=== PATIENT | male | born 1975 | race Two or more races ===

== ENCOUNTER 2018-04-06 09:17 | Emergency (ER) | payer SELFPAY ==
[2018-04-06] MEDS ORDERED: IBUPROFEN 600 MG TAB PO ONE (09:34)
[2018-04-06] MEDS ORDERED: TDAP ADULT 0.5 ML INJ (BOOSTRIX) IM ONE (09:34)
[2018-04-06] MEDS ORDERED: OXYCODONE/APAP 5/325 TAB PO ONE (09:34)
--- NOTE | 2018-04-06 09:42 | EDPHY ---
General Time Seen by Provider: 04/06/18 09:35 Narrative: CHIEF COMPLAINT: Hand burn HISTORY OF PRESENT ILLNESS: Patient presents by private vehicle with spouse with complaints of burn to the right hand. He says that just prior to arrival his coffee pot "exploded," describing coffee coming out the top of the coffee pot. He attempted to stop the liquid from splint everywhere, and it hit him on the back of the right hand. He states that he is 10/10 pain on the back of the right hand. He did have a ring on that he immediately removed. He ran his hand under tap water for 1 min. His pain is worse with any kind of palpation and movement. He has no burn or pain on the palm of the hand. No burn above the hand. He denies any injury to the face, eyes, genitals or remainder of his person. He does not know when his last Tdap was administered. No other associated complaints or modifying factors. Right-hand dominant. HPI obtained using the hospital's certified [place]oc[place] language specialist ( Laura) at bedside in patient's room. TIME OF INJURY: Just prior to arrival TETANUS STATUS: Uncertain MEDICAL/SURGICAL/SOCIAL HISTORY: Uncomplicated. Nonsmoker. Lives independently with his spouse. Works in construction REVIEW OF SYSTEMS: Ten systems reviewed and are negative unless otherwise noted in the HPI EXAMINATION General Appearance: Alert, no distress Head: normocephalic, atraumatic Cardiovascular: Radial pulses symmetric. Good signs of perfusion of the right hand. Neurological: A&O, 2 point sensory symmetric, mexican food machine tender and interossei strength symmetric Skin: Warm and dry, no rash. There is an area of partial-thickness and superficial burn to the dorsum of the right hand. The partial-thickness is approximately 2 cm by 3 cm with eruption of a blister. There is involvement only the dorsum of the right hand with no involvement of the palmar surface or any circumferential vazquez. There is no involvement above the metacarpals. No signs of infection. Extremities: Moderate tenderness to the dorsum of the right hand. Range of motion of the hand symmetric with good extension and flexion of all the fingers symmetrically. All compartments are soft without any signs of compartment syndrome. DIFFERENTIAL DIAGNOSES: Including but not limited to partial-thickness burn, superficial burn, full- thickness burn MDM: 9:35 a.m. Partial-thickness burn to the dorsum of the right hand without any circumferential vazquez. This measures approximately 1% total surface area. We will irrigate the wound, I have ordered pain medication and Tdap booster. I discussed with Dr. Jacobsen. I will also consult with our wound clinic to assure outpatient follow-up. 9:50 a.m. Case discussed with on-call general surgeon Dr. Brian. He requested I performed debridement. We performed standard burn care and that he would like to see the patient in the wound care center on . 10:15 a.m. I have performed debridement and Patient re-evaluated. He has been irrigated and bacitracin applied to affected areas. There are piece of gauze between fingers to protect. He is resting comfortably. He has received his Tdap booster, pain medication ibuprofen. I reaffirmed his need to leave the dressing in place until . Laura will help the patient arrange for an appointment on . ED precautions discussed. Discharged home stable condition. PROCEDURE: Debridement Indication: Hand burn Consent: Verbal Location: Dorsum of the right hand Length: 5 cm x 3 cm Complexity: Complex Anesthesia: None Procedure description: After time-out and verbal consent, the a hand was prepped, sterile fashion. Wound was irrigated copiously. I then excised approximately 5 subcutaneously cm of nonviable tissue following partial- thickness burn. The underlying tissue was viable, and without signs of infection or bleeding. Wound care: As discussed with the wound healing Center on Follow-up: Wound Healing Center on SUPERVISION: Patient was independently examined, but I discussed the case with my secondary supervising physician Dr. Jacobsen - History History Review: I reviewed the patient's medical records, I obtained additional history from the patient's family Smoking Status: Never smoked - Objective Vital Signs: Initial Vital Signs Temperature (C) 98.1 F 04/06/18 09:21 Heart Rate 71 04/06/18 09:21 Respiratory Rate 16 04/06/18 09:21 Blood Pressure 136/90 H 04/06/18 09:21 O2 Sat (%) 96 04/06/18 09:21 O2 Delivery Mode Room Air Allergies/Adverse Reactions: No Known Allergies Allergy (Unverified 04/06/18 09:21) Home Medications: Medication Instructions Recorded oxyCODONE HCL/ACETAMINOPHEN 1 each PO Q4-6PRN PRN #11 tablet 04/06/18 [Percocet 5-325 mg Tablet] Departure - Departure Disposition: Home, Routine, Self-Care Clinical Impression: Partial thickness burn of right hand including fingers Qualifiers: Encounter type: initial encounter Qualified Code(s): T23.201A - Burn of second degree of right hand, unspecified site, initial encounter; T23.231A - Burn of second degree of multiple right fingers (nail), not including thumb, initial encounter; T23.231A - Burn of second degree of multiple right fingers (nail), not including thumb, initial encounter Condition: Good Instructions: Second Degree Burn (ED) Additional Instructions: 1. Leave the dressing in place until seen by wound care 2. Pain medication as prescribed as needed. Do not combine with any other medications. Do not drive or operate machinery with this medication 3. Contact the outpatient wound clinic on . 4. Return to emergency department for increasing pain, swelling, numbness, fever Referrals: [facility],. [Clinic] - As per Instructions Shira Wood MD [Medical Doctor] - As per Instructions Wound Healing Center,[facility] [Clinic] - As per Instructions Stand Alone Forms: Work Excuse Prescriptions: oxyCODONE HCL/ACETAMINOPHEN [Percocet 5-325 mg Tablet] 1 each PO Q4-6PRN PRN # 11 tablet PRN Reason: Pain, Breakthrough
[2018-04-06 10:19] VITALS: BP 125/78
== END 2018-04-06 10:30 | disposition home or self-care (01) ==
PROC: 2W28X4Z Dressing of Right Upper Extremity using Bandage (ICD-10-PCS; principal; 2018-04-06)
DX: T23.261A Burn of second degree of back of right hand, initial encounter (principal); X10.0XXA Contact with hot drinks, initial encounter; Y92.000 Kitchen of unspecified non-institutional (private) residence as the place of occurrence of the external cause; T31.0 Burns involving less than 10% of body surface; Z23 Encounter for immunization